=== PATIENT | female | born 1970 | race Caucasian/White ===

== ENCOUNTER → 2016-09-15 | Outpatient (CLI) | payer SELFPAY | END | disposition home or self-care (01) | LOC: PTH.S 12:00 | DX: Q85.1 Tuberous sclerosis (principal); K76.0 Fatty (change of) liver, not elsewhere classified; Q61.02 Congenital multiple renal cysts; K76.89 Other specified diseases of liver; K43.9 Ventral hernia without obstruction or gangrene ==

== ENCOUNTER → 2016-12-22 | Outpatient (CLI) | payer SELFPAY | END | disposition home or self-care (01) | LOC: RAD.S 10:32 | DX: M25.562 Pain in left knee (principal) ==